=== PATIENT | male | born 1980 | race African-American/Black ===

== ENCOUNTER 2018-11-22 13:31 | Outpatient (CLI) | payer MEDICAID ==
--- NOTE | 2018-11-22 14:25 | RAD ---
LEFT SHOULDER 3 VIEWS: Date: 11/22/18 HISTORY: Left shoulder pain. FINDINGS/IMPRESSION: No fracture, dislocation, or other acute process. POS: C
--- NOTE | 2018-11-22 14:32 | RAD ---
Exam: LUMBAR SPINE TWO VIEWS: 11/22/18 HISTORY: Low back pain. FINDINGS/IMPRESSION: Mild discogenic and degenerative changes. No fracture, dislocation, or other significant acute osseou s abnormality. POS: C
== END 2018-11-22 13:32 | disposition home or self-care (01) ==
LOC: BICRAD 13:31
PROVIDERS: ATTEND Specialist
DX: M54.5 Low back pain (principal); M25.512 Pain in left shoulder; M47.816 Spondylosis without myelopathy or radiculopathy, lumbar region; M51.26 Other intervertebral disc displacement, lumbar region
CPT/HCPCS: 72100

== ENCOUNTER 2022-12-16 08:09 | Outpatient (CLI) | payer BC, OTHER | END 2022-12-16 08:10 | disposition home or self-care (01) | LOC: CT 08:09 | PROVIDERS: ATTEND Specialist | DX: N20.0 Calculus of kidney (principal) | CPT/HCPCS: 74176 ==